=== PATIENT | female | born 1970 | race Hispanic/Latino ===

== ENCOUNTER 2020-04-06 16:27 | Observation (INO) | payer MEDICARE ==
--- NOTE | 2020-04-06 15:58 | Emergency Department Report ---
ED Psych HPI - General Chief Complaint: Overdose Stated Complaint: SI Source: patient, EMS Mode of arrival: Ambulatory - History of Present Illness Initial Comments: Patient is a 55-year-old female with a history of depression who is presenting after an overdose. Patient states she took unknown amount of Seroquel and Klonopin. She states she does not want to live in this world anymore wants to sleep forever. Patient states she took the overdose approximate hour prior to her arrival. She is denying any nausea vomiting and just states she is feels sleepy at the moment. - Related Data Allergies Allergy/AdvReac Type Severity Reaction Status Date / Time cephalexin [From Keflex] Allergy Intermediate hypotension Verified 04/06/20 15:50 ED Review of Systems ROS: Stated complaint: SI Other details as noted in HPI Comment: All other systems reviewed and negative ED Past Medical Hx - Social History Smoking Status: Former Smoker Substance Use Type: None ED Physical Exam - General Limitations: No Limitations General appearance: alert, in no apparent distress, lethargic - Head Head exam: Present: atraumatic, normocephalic - Eye Eye exam: Present: normal appearance, PERRL, EOMI - ENT ENT exam: Present: mucous membranes moist - Neck Neck exam: Present: normal inspection - Respiratory Respiratory exam: Present: normal lung sounds bilaterally. Absent: respiratory distress, wheezes, rales, rhonchi - Cardiovascular Cardiovascular Exam: Present: regular rate, normal rhythm, normal heart sounds. Absent: systolic murmur, diastolic murmur, rubs, gallop - GI/Abdominal GI/Abdominal exam: Present: soft, normal bowel sounds. Absent: distended, tenderness, guarding, rebound - Extremities Exam Extremities exam: Present: normal inspection - Back Exam Back exam: Present: normal inspection - Neurological Exam Neurological exam: Present: alert, oriented X3 - Psychiatric Psychiatric exam: Present: normal affect, normal mood - Skin Skin exam: Present: warm, dry, intact, normal color. Absent: rash ED Course Vital Signs 04/06/20 15:16 Temperature 9708 F H Pulse Rate 94 H Respiratory 14 Rate Blood Pressure 85/55 - Reevaluation(s) Reevaluation #1: 04/06/20 15:56 Blood control was called. The assumption is that she took extended release Klonopin. This medication will cause drowsiness and they told us to put the patient on aspiration precautions. EKG will need to be ordered to begin monitoring the QRS and QTc.. We will monitor for QRS widening greater than 100 and QTC greater than 500. Patient's will need observation as the half-life is 34 hours for Seroquel. Reevaluation #2: 04/06/20 16:30 After fluids were initiated and 500 cc of fluid infused the patient blood pressure ida to 111/65. ED Medical Decision Making - Lab Data Result diagrams: 04/06/20 15:20 04/06/20 15:20 Lab Results 04/06/20 04/06/20 04/06/20 Range/Units 15:20 15:20 15:20 WBC 5.6 (4.5-11.0) K/mm3 RBC 5.84 H (3.65-5.03) M/mm3 Hgb 10.2 (10.1-14.3) gm/dl Hct 34.5 (30.3-42.9) % MCV 59 L (79-97) fl MCH 18 L (28-32) pg MCHC 30 (30-34) % RDW 22.9 H (13.2-15.2) % Plt Count 344 (140-440) K/mm3 Lymph % (Auto) 30.2 (13.4-35.0) % [place] % (Auto) 9.7 H (0.0-7.3) % Eos % (Auto) 1.3 (0.0-4.3) % Baso % (Auto) 0.8 (0.0-1.8) % Lymph # 1.7 (1.2-5.4) K/mm3 [place] # 0.5 (0.0-0.8) K/mm3 Eos # 0.1 (0.0-0.4) K/mm3 Baso # 0.0 (0.0-0.1) K/mm3 Seg Neutrophils % 58.0 (40.0-70.0) % Seg Neutrophils # 3.3 (1.8-7.7) K/mm3 Sodium 141 (137-145) mmol/L Potassium 3.8 (3.6-5.0) mmol/L Chloride 106.1 (98-107) mmol/L Carbon Dioxide 21 L (22-30) mmol/L Anion Gap 18 mmol/L BUN 14 (7-17) mg/dL Creatinine 0.4 L (0.7-1.2) mg/dL Estimated GFR > 60 ml/min BUN/Creatinine Ratio 35 % Glucose 117 H (65-100) mg/dL Calcium 9.3 (8.4-10.2) mg/dL Total Bilirubin 0.30 (0.1-1.2) mg/dL AST 66 H (5-40) units/L ALT 86 H (7-56) units/L Alkaline Phosphatase 93 (35-129) units/L Total Protein 7.1 (6.3-8.2) g/dL Albumin 4.2 (3.9-5) g/dL Albumin/Globulin Ratio 1.4 % HCG, Qual (Negative) Salicylates < 0.3 L (2.8-20.0) mg/dL Acetaminophen (10.0-30.0) ug/mL Plasma/Serum Alcohol (0-0.07) % 04/06/20 04/06/20 04/06/20 Range/Units 15:20 15:20 15:20 WBC (4.5-11.0) K/mm3 RBC (3.65-5.03) M/mm3 Hgb (10.1-14.3) gm/dl Hct (30.3-42.9) % MCV (79-97) fl MCH (28-32) pg MCHC (30-34) % RDW (13.2-15.2) % Plt Count (140-440) K/mm3 Lymph % (Auto) (13.4-35.0) % [place] % (Auto) (0.0-7.3) % Eos % (Auto) (0.0-4.3) % Baso % (Auto) (0.0-1.8) % Lymph # (1.2-5.4) K/mm3 [place] # (0.0-0.8) K/mm3 Eos # (0.0-0.4) K/mm3 Baso # (0.0-0.1) K/mm3 Seg Neutrophils % (40.0-70.0) % Seg Neutrophils # (1.8-7.7) K/mm3 Sodium (137-145) mmol/L Potassium (3.6-5.0) mmol/L Chloride (98-107) mmol/L Carbon Dioxide (22-30) mmol/L Anion Gap mmol/L BUN (7-17) mg/dL Creatinine (0.7-1.2) mg/dL Estimated GFR ml/min BUN/Creatinine Ratio % Glucose (65-100) mg/dL Calcium (8.4-10.2) mg/dL Total Bilirubin (0.1-1.2) mg/dL AST (5-40) units/L ALT (7-56) units/L Alkaline Phosphatase (35-129) units/L Total Protein (6.3-8.2) g/dL Albumin (3.9-5) g/dL Albumin/Globulin Ratio % HCG, Qual Negative (Negative) Salicylates (2.8-20.0) mg/dL Acetaminophen < 5.0 L (10.0-30.0) ug/mL Plasma/Serum Alcohol 0.01 (0-0.07) % - Medical Decision Making Because of the long half-life of Seroquel the patient will be admitted for observation. Patient placed on a monitor will continue to monitor her QRS and QT. Patient been to the hospitalist service. Critical Care Time: Yes (30) Critical care attestation.: If time is entered above; I have spent that time in minutes in the direct care of this critically ill patient, excluding procedure time. ED Disposition Clinical Impression: Suicide attempt Overdose Qualifiers: Encounter type: initial encounter Injury intent: intentional self-harm Qualified Code(s): T50.902A - Poisoning by unspecified drugs, medicaments and biological substances, intentional self-harm, initial encounter Disposition: DC-09 OP ADMIT IP TO THIS HOSP Is pt being admited?: Yes Does the pt Need Aspirin: No Condition: Stable Time of Disposition: 16:34
[2020-04-06 16:01] LABS: Basophils % (Auto) 0.8 % (0.0-1.8); Eosinophils # (Auto) 0.1 K/mm3 (0.0-0.4); Eosinophils % (Auto) 1.3 % (0.0-4.3); Lymphocytes # (Auto) 1.7 K/mm3 (1.2-5.4); Lymphocytes % (Auto) 30.2 % (13.4-35.0); Mean Corpuscular HGB Conc 30 % (30-34); Monocytes # (Auto) 0.5 K/mm3 (0.0-0.8); Monocytes % (Auto) 9.7 % (0.0-7.3); Platelet Count 344 K/mm3 (140-440); Red Blood Count 5.84 M/mm3 (3.65-5.03)
[2020-04-06 16:05] LABS: Hematocrit 34.5 % (30.3-42.9); Hemoglobin 10.2 gm/dl (10.1-14.3); Mean Corpuscular Volume 59 fl (79-97); Red Cell Distribution Width 22.9 % (13.2-15.2)
[2020-04-06 16:14] LABS: Alanine Aminotransferase 86 units/L (7-56); Albumin 4.2 g/dL (3.9-5); BUN/Creatinine Ratio 35; Blood Urea Nitrogen 14 mg/dL (7-17); Calcium 9.3 mg/dL (8.4-10.2)
[~2020-04-06 16:27] MED LIST: SODIUM CHLORIDE 0.9% 1000 ML 1,000 ML IV ONE
--- NOTE | 2020-04-06 16:34 | History and Physical Report ---
History of Present Illness Chief complaint: I took some pills History of present illness: 55 YO Female with Depression, Obesity presents to ED for evaluation. Patient reports taking an unknown quantity of Seroquel and Klonopin tablets today in an attempt to take her own life. Patient reports "I do not want to live in this world anymore and I just want to sleep forever". Patient reports ingestion of the aforementioned tablets approximately 1 hour prior to arrival. EMS was notified and upon arrival the patient was found to be in distress and subsequently transported to [facility] for further evaluation and care of the aforementioned complaints. Patient seen and evaluated in the emergency department. Lab and imaging studies reviewed. EKG conducted without significant changes. Poison control notified. Patient placed in observation status and admitted to telemetry for further monitoring. Patient denies fever, chills, chest pain, palpitation, productive cough, skin rash, recent ill contacts, syncope, trauma, known exposure to COVID-19. No prior admission for review. No medication listed at time of admission for reconciliation. Mental health consulted in ED. Past History Past Medical History: other (See HPI) Past Surgical History: No surgical history, Other (Reviewed) Social history: single. denies: smoking, alcohol abuse Family history: denies: no significant family history (Reviewed) Medications and Allergies Allergies Allergy/AdvReac Type Severity Reaction Status Date / Time cephalexin [From Keflex] Allergy Intermediate hypotension Verified 04/06/20 15:50 Active Meds: Active Medications Sodium Chloride (Nacl 0.9% 1000 Ml) 1,000 mls @ 999 mls/hr IV BOLUS ONE Stop: 04/06/20 16:53 Last Admin: 04/06/20 16:02 Dose: 999 mls/hr Documented by: Sodium Chloride (Nacl 0.9% 1000 Ml) 1,000 mls @ 999 mls/hr IV BOLUS ONE Stop: 04/06/20 16:53 Last Admin: 04/06/20 16:03 Dose: 999 mls/hr Documented by: Review of Systems Constitutional: no weight loss, no weight gain, no fever, no chills Ears, nose, mouth and throat: no ear pain, no ear discharge, no tinnitis Breasts: no change in shape, no swelling, no mass Cardiovascular: no chest pain, no edema, no syncope, no lightheadedness Respiratory: no cough, no cough with sputum Gastrointestinal: no abdominal pain, no nausea, no vomiting, no diarrhea, no constipation Genitourinary Female: no pelvic pain, no flank pain, no menorrhagia, no dysuria, no urinary frequency, no urgency Rectal: no pain, no incontinence, no bleeding Musculoskeletal: no neck stiffness, no neck pain, no shooting arm pain, no arm numbness/tingling, no low back pain, no shooting leg pain, no leg numbness/tingling Integumentary: no rash, no pruritis, no redness, no sores, no wounds Neurological: no transient paralysis, no paralysis, no weakness, no parathesias, no numbness, no tingling Psychiatric: depression, hopelessness Endocrine: no cold intolerance, no heat intolerance, no polyphagia, no excessive thirst, no polydipsia, no polyuria Hematologic/Lymphatic: no easy bruising, no easy bleeding, no lymphadenopathy, no lymphedema Allergic/Immunologic: no urticaria, no allergic rhinitis, no persistent infections, no anaphylaxis Exam - Constitutional Vitals: Temp Pulse Resp BP Pulse Ox 9708 F H 94 H 14 85/55 04/06/20 15:16 04/06/20 15:16 04/06/20 15:16 04/06/20 15:16 General appearance: Present: no acute distress, well-nourished - EENT Eyes: Present: PERRL ENT: hearing intact, clear oral mucosa - Neck Neck: Present: supple, normal ROM - Respiratory Respiratory effort: normal Respiratory: bilateral: CTA - Cardiovascular Heart Sounds: Present: S1 & S2. Absent: rub, click - Extremities Extremities: pulses symmetrical, No edema Peripheral Pulses: within normal limits - Abdominal General gastrointestinal: Present: soft, non-tender, non-distended, normal bowel sounds Female genitourinary: Present: normal - Integumentary Integumentary: Present: clear, warm, dry - Musculoskeletal Musculoskeletal: gait normal, strength equal bilaterally - Psychiatric Psychiatric: appropriate mood/affect, intact judgment & insight - Neurologic Neurologic: CNII-XII intact, moves all extremities Results - Labs CBC & Chem 7: 04/06/20 15:20 04/06/20 15:20 Labs: Abnormal lab results 04/06/20 04/06/20 04/06/20 Range/Units 15:20 15:20 15:20 RBC 5.84 H (3.65-5.03) M/mm3 MCV 59 L (79-97) fl MCH 18 L (28-32) pg RDW 22.9 H (13.2-15.2) % [place] % (Auto) 9.7 H (0.0-7.3) % Carbon Dioxide 21 L (22-30) mmol/L Creatinine 0.4 L (0.7-1.2) mg/dL Glucose 117 H (65-100) mg/dL AST 66 H (5-40) units/L ALT 86 H (7-56) units/L Salicylates < 0.3 L (2.8-20.0) mg/dL Acetaminophen (10.0-30.0) ug/mL 04/06/20 Range/Units 15:20 RBC (3.65-5.03) M/mm3 MCV (79-97) fl MCH (28-32) pg RDW (13.2-15.2) % [place] % (Auto) (0.0-7.3) % Carbon Dioxide (22-30) mmol/L Creatinine (0.7-1.2) mg/dL Glucose (65-100) mg/dL AST (5-40) units/L ALT (7-56) units/L Salicylates (2.8-20.0) mg/dL Acetaminophen < 5.0 L (10.0-30.0) ug/mL Assessment and Plan - Patient Problems (1) Overdose Current Visit: No Status: Acute Qualifiers: Encounter type: initial encounter Injury intent: intentional self-harm Qualified Code(s): T50.902A - Poisoning by unspecified drugs, medicaments and biological substances, intentional self-harm, initial encounter Plan to address problem: Poison control notified. Will monitor patient in telemetry overnight. Will monitor for QRS greater than 100, as well as QT interval greater than 500. EKG conducted without significant changes. Continue supportive care. (2) Suicide attempt Current Visit: No Status: Acute Plan to address problem: Mental health consulted, one-to-one sitter.
[2020-04-06] MEDS ORDERED: ACETAMINOPHEN 325 MG TAB PO PRN (16:42)
[2020-04-06] MEDS ORDERED: ONDANSETRON 4 MG/2 ML INJ IV PRN (16:42)
--- NOTE | 2020-04-06 23:14 | Event Note ---
Date: 04/06/20 Informed by RN pt refuses to wear desk monitor and states she will throw it away if the leads are replaced by the RN per RN. Patient is s/p suicide attempt by ingestion of Seroquel and Klonopin and was placed for QT monitoring. Continue to monitor.
[2020-04-06] MEDS: CETIRIZINE 10 MG TAB PO SCH (23:25)
[2020-04-07] MEDS ORDERED: FLUTICASONE PROPIONATE NASAL SPRAY 16 GM NS PRN (02:24)
[2020-04-07 04:53] LABS: BUN/Creatinine Ratio 30; Blood Urea Nitrogen 12 mg/dL (7-17); Calcium 9.1 mg/dL (8.4-10.2); Hemolysis Index 1
[2020-04-07 11:47] VITALS: BP 125/84
[2020-04-07] MEDS: CETIRIZINE 10 MG TAB PO SCH (11:53)
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
[2020-04-07] MEDS ORDERED: DICYCLOMINE 10 MG/5 ML ORAL LIQD PO SCH (15:00)
[2020-04-07] MEDS ORDERED: VENLAFAXINE 75 MG TAB PO SCH (15:00)
[2020-04-07 16:45] LABS: Amphetamine Screen,Urine PRESUMPTIVE POSITIVE; Benzodiazepines Screen,Urine PRESUMPTIVE POSITIVE; Cannabinoid Screen,Urine PRESUMPTIVE NEGATIVE; Methadone Screen,Urine PRESUMPTIVE NEGATIVE
[2020-04-07 16:46] LABS: Cocaine Screen,Urine PRESUMPTIVE NEGATIVE; Opiate Screen,Urine PRESUMPTIVE NEGATIVE
[2020-04-07] MEDS ORDERED: QUEtiapine 25 MG TAB PO SCH (22:00)
== END 2020-04-07 18:08 ==
LOC: ED 16:27 → EDBD 16:42 → 4A 16:42
PROVIDERS: ADMIT Internal Medicine; ATTEND Internal Medicine
DX: T42.4X2A Poisoning by benzodiazepines, intentional self-harm, initial encounter (principal); T14.91XA Suicide attempt, initial encounter; F33.2 Major depressive disorder, recurrent severe without psychotic features; F41.9 Anxiety disorder, unspecified; E66.9 Obesity, unspecified; Z79.899 Other long term (current) drug therapy; Z88.1 Allergy status to other antibiotic agents; Z68.31 Body mass index [BMI] 31.0-31.9, adult; X58.XXXA Exposure to other specified factors, initial encounter; Y93.89 Activity, other specified; Y92.89 Other specified places as the place of occurrence of the external cause
CPT/HCPCS: 36415; 80048; 80053; 80307; 84703; 85025; 93005; 99291; G0378; J7030; 80320; G0480